=== PATIENT | female | born 1965 | race Asian ===

== ENCOUNTER 2024-06-28 15:14 | Emergency (ER) | payer OTHER ==
[~2024-06-28] VITALS: Ht 160 cm; Wt 60.8 kg
[2024-06-28 15:19] VITALS: BP_SYST 133; PULSE 94; RESP 18; TEMP 97.8; O2SAT 96
[2024-06-28] MEDS ORDERED: SOM350 PO (17:29)
== END 2024-06-28 18:10 | disposition home or self-care (01) ==
LOC: SED 15:14
DX: R51.9 Headache, unspecified (principal); R00.2 Palpitations; Z88.6 Allergy status to analgesic agent; V89.2XXA Person injured in unspecified motor-vehicle accident, traffic, initial encounter; Y93.89 Activity, other specified; Y92.89 Other specified places as the place of occurrence of the external cause; Y99.8 Other external cause status
CPT/HCPCS: 70450-TC; 93005; 99284